=== PATIENT | female | born 1990 | race African-American/Black ===

== ENCOUNTER 2023-05-15 11:08 | Emergency (ER) | payer BC, SELFPAY ==
[2023-05-15 11:10] VITALS: BP 173/112; BP 183/101; PULSE 110; PULSE 115; RESP 16; RESP 20; TEMP 36.8; TEMP 36.9; O2SAT 100; BMI 34.1
--- NOTE | 2023-05-15 11:33 | RAD_ITS ---
EXAM: XR LUMBOSACRAL SPINE, 2 OR 3 VIEWS CLINICAL INDICATION: Injury/Pain TECHNIQUE: Frontal and lateral views of the lumbar spine and sacrum. COMPARISON: No relevant prior studies available. FINDINGS: VERTEBRAE: Normal. Preserved vertebral body height. No fracture. No spondylolisthesis. Preservation of the normal lumbar lordosis. DISC SPACES: No acute findings. Disc spaces are maintained. RAD/Lumbar Spine 2 or 3 Views IMPRESSION: Intact lumbar spine. Electronically Signed: Kendall Roach MD at 12:47 EDT ,
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
[2023-05-15] MEDS: HYDROcodone Bitartrate/Apap 5/325 Tablet PO (11:51)
[2023-05-15] MEDS: Ibuprofen 600 MG Tablet PO (11:51)
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
[2023-05-15 13:18] VITALS: BP 146/82; PULSE 100; RESP 16; O2SAT 100
[2023-05-15 13:27] VITALS: BP 146/82; O2SAT 100
== END 2023-05-15 13:31 | disposition home or self-care (01) ==
PROVIDERS: Emergency Provider Emergency Medicine; Visit Provider Emergency Medicine
DX: S20.20XA Contusion of thorax, unspecified, initial encounter (principal); S39.012A Strain of muscle, fascia and tendon of lower back, initial encounter; E66.9 Obesity, unspecified; V43.52XA Car driver injured in collision with other type car in traffic accident, initial encounter
CPT/HCPCS: 71046; 72100; 99285